=== PATIENT | female | born 1940 | race African-American/Black ===

== ENCOUNTER → 2017-03-03 | Outpatient (CLI) | payer OTHER ==
[2016-05-20 12:18] VITALS: BP 126/83
[~2017-03-03] MED LIST: ALEN70TA5 PO; AMLO5TAB2 PO; AMOX1TAB61 PO; Amoxicillin/Potassium Clav PO; GLIP10TA13 PO; HYDR-971 PO; INSU100I30 SQ; LEVO150T5 PO; LEVO200T5 PO; LINA5TAB4 PO; METF500T4 PO; METO25TA4 PO; Metoprolol Tartrate PO; POTA20TA12 PO; SIMV20TA3 PO; SITA100T PO; TRIA1TAB5 PO
--- NOTE | 2017-03-04 14:13 | KCIC ---
Examination: Ultrasound kidneys HISTORY: History of chronic kidney disease, hypertension, diabetes COMPARISON: None available FINDINGS: The right kidney measures 11.7 x 4.0 x 5.1 cm. The left kidney measures 10.9 x 5.4 x 5.4 cm. There is a cystic structure measuring 2.6 x 2.9 x 2.6 cm identified in the superior pole of the right kidney likely a cyst. In the mid to lower pole left kidney, there is a complex septated cystic structure identified measuring 2.0 x 2.0 x 2.4 cm. Urinary bladder is mildly distended. Bilateral ureteral jets are identified within the urinary bladder. IMPRESSION: 1. 2.4 cm complex appearing cyst or cystic lesion identified in the left kidney. Close interval follow-up examination is recommended. 2. Simple appearing cyst measuring 2.9 cm in the right kidney. Electronically signed by: Santiago Multani MD (03/04/2017 2:10 PM) [id number]
== END | disposition home or self-care (01) ==
LOC: US 12:12
PROVIDERS: ATTEND Internal Medicine Nephrology
DX: N28.1 Cyst of kidney, acquired (principal); I12.9 Hypertensive chronic kidney disease with stage 1 through stage 4 chronic kidney disease, or unspecified chronic kidney disease; E11.22 Type 2 diabetes mellitus with diabetic chronic kidney disease; N18.3 Chronic kidney disease, stage 3 (moderate)
CPT/HCPCS: 76770

== ENCOUNTER 2018-11-09 11:58 | Emergency (ER) | payer OTHER ==
[~2018-11-09] VITALS: Ht 175.3 cm; Wt 104.3 kg
[~2018-11-09 11:58] MED LIST changes: -ALEN70TA5 PO; +ALEN70TA6 PO; +AMLO5TAB10 PO; -AMLO5TAB2 PO; +HYDR-3164 PO; -HYDR-971 PO; +LINA5TAB PO; -LINA5TAB4 PO; +METF500T16 PO; -METF500T4 PO
[2018-11-09] MEDS ORDERED: fentaNYL PF VIAL 100 MCG/2 ML VIAL IV ONE (12:30)
[2018-11-09] MEDS ORDERED: ONDANSETRON PF 4 MG/2 ML VIAL. IV ONE (12:30)
[2018-11-09 12:32] LABS: BILIRUBIN,URINE NEGATIVE (NEG); CLARITY,URINE HAZY; COLOR,URINE YELLOW; NITRITE,URINE NEGATIVE (NEG); PH,URINE 6.5; PROTEIN,URINE NEGATIVE (NEG-TRACE); UROBILINOGEN,URINE 0.2 mg/dL (0.2 mg/dL)
[2018-11-09 12:33] LABS: BACTERIA,URINE MANY /HPF (0-FEW); SQUAMOUS EPITHELIAL CELL,UR MANY /LPF
--- NOTE | 2018-11-09 12:41 | PHYS DOC ---
Past Medical History Past Medical History: Diabetes-Type II, High Cholesterol, Hypertension, Hypothyroid Past Surgical History: Alcohol Use: None Drug Use: None Adult General Chief Complaint Chief Complaint: ABDOMINAL PAIN HPI HPI Patient is a 77 year old female with a history of hypertension, high cholesterol, kidney disease, DM II, who presents to the ED today complaining of mild left upper quadrant/flank pain that began this morning. Patient is also complaining of nausea with no vomiting. Review of Systems Review of Systems Constitutional: Denies fever or chills [] Eyes: Denies change in visual acuity, redness, or eye pain [] HENT: Denies nasal congestion or sore throat [] Respiratory: Denies cough or shortness of breath [] Cardiovascular: No additional information not addressed in HPI [] GI: Reports left upper quadrant abdominal pain. Reports nausea. Denies vomiting , bloody stools or diarrhea [] : Denies dysuria or hematuria [] Musculoskeletal: Denies back pain or joint pain [] Integument: Denies rash or skin lesions [] Neurologic: Denies headache, focal weakness or sensory changes [] All other systems were reviewed and found to be within normal limits, except as documented in this note. Current Medications Current Medications Current Medications Medications (Trade) Dose Ordered Sig/Simi Start Time Stop Time Status Last Admin Dose Admin Fentanyl Citrate (Fentanyl 2ml Vial) 50 mcg 1X ONCE 11/09/18 12:30 11/09/18 12:33 DC 11/09/18 13:14 50 MCG Morphine Sulfate (Morphine Sulfate) 5 mg 1X ONCE 11/09/18 15:00 11/09/18 15:01 DC 11/09/18 15:15 5 MG Ondansetron HCl (Zofran) 4 mg 1X ONCE 11/09/18 12:30 11/09/18 12:33 DC 11/09/18 13:11 4 MG Sodium Chloride 1,000 ml @ 1,000 mls/hr 1X ONCE 11/09/18 14:45 11/09/18 15:44 DC 11/09/18 15:11 1,000 MLS/HR Allergies Allergies Allergies Coded Allergies Type Severity Reaction Last Updated Verified No Known Drug Allergies 05/20/16 No Physical Exam Physical Exam Constitutional: Well developed, well nourished, no acute distress, non-toxic appearance. [] HENT: Normocephalic, atraumatic, bilateral external ears normal, oropharynx moist, no oral exudates, nose normal. [] Eyes: PERRLA, EOMI, conjunctiva normal, no discharge. [] Neck: Normal range of motion, no tenderness, supple, no stridor. [] Cardiovascular:Heart rate regular rhythm, no murmur [] Lungs & Thorax: Bilateral breath sounds clear to auscultation [] Abdomen: Bowel sounds normal, soft, no tenderness, no masses, no pulsatile masses. [] Skin: Warm, dry, no erythema, no rash. [] Back: No tenderness, no CVA tenderness. [] Extremities: No tenderness, no cyanosis, no clubbing, ROM intact, no edema. [] Neurologic: Alert and oriented X 3, normal motor function, normal sensory function, no focal deficits noted. [] Psychologic: Affect normal, judgement normal, mood normal. [] Current Patient Data Vital Signs Vital Signs Date Time Temp Pulse Resp B/P (MAP) Pulse Ox O2 Delivery O2 Flow Rate FiO2 11/09/18 15:15 13 99 Room Air 11/09/18 11:58 97.7 81 125/72 (89) 97.7 Lab Values Laboratory Tests Test 11/09/18 12:13 11/09/18 13:08 Urine Collection Type Void Urine Color Yellow Urine Clarity Hazy Urine pH 6.5 Urine Specific [place] 1.010 Urine Protein Negative mg/dL (NEG-TRACE) Urine Glucose (UA) Negative mg/dL (NEG) Urine Ketones (Stick) Negative mg/dL (NEG) Urine Blood Small (NEG) Urine Nitrite Negative (NEG) Urine Bilirubin Negative (NEG) Urine Urobilinogen Dipstick 0.2 mg/dL (0.2 mg/dL) Urine Leukocyte Esterase Trace (NEG) Urine RBC 1-2 /HPF (0-2) Urine WBC 1-4 /HPF (0-4) Urine Squamous Epithelial Cells Many /LPF Urine Bacteria Many /HPF (0-FEW) Urine Mucus Slight /LPF White Blood Count 5.9 x10^3/uL (4.0-11.0) Red Blood Count 4.29 x10^6/uL (3.50-5.40) Hemoglobin 10.8 g/dL (12.0-15.5) L Hematocrit 34.0 % (36.0-47.0) L Mean Corpuscular Volume 79 fL (79-100) Mean Corpuscular Hemoglobin 25 pg (25-35) Mean Corpuscular Hemoglobin Concent 32 g/dL (31-37) Red Cell Distribution Width 14.6 % (11.5-14.5) H Platelet Count 237 x10^3/uL (140-400) Neutrophils (%) (Auto) 67 % (31-73) Lymphocytes (%) (Auto) 13 % (24-48) L Monocytes (%) (Auto) 10 % (0-9) H Eosinophils (%) (Auto) 10 % (0-3) H Basophils (%) (Auto) 1 % (0-3) Neutrophils # (Auto) 3.9 x10^3uL (1.8-7.7) Lymphocytes # (Auto) 0.8 x10^3/uL (1.0-4.8) L Monocytes # (Auto) 0.6 x10^3/uL (0.0-1.1) Eosinophils # (Auto) 0.6 x10^3/uL (0.0-0.7) Basophils # (Auto) 0.0 x10^3/uL (0.0-0.2) Sodium Level 131 mmol/L (136-145) L Potassium Level 4.3 mmol/L (3.5-5.1) Chloride Level 95 mmol/L (98-107) L Carbon Dioxide Level 31 mmol/L (21-32) Anion Gap 5 (6-14) L Blood Urea Nitrogen 25 mg/dL (7-20) H Creatinine 1.4 mg/dL (0.6-1.0) H Estimated GFR (Cockcroft-Gault) 44.4 BUN/Creatinine Ratio 18 (6-20) Glucose Level 115 mg/dL (70-99) H Calcium Level 8.8 mg/dL (8.5-10.1) Total Bilirubin 0.4 mg/dL (0.2-1.0) Aspartate Amino Transferase (AST) 14 U/L (15-37) L Alanine Aminotransferase (ALT) 16 U/L (14-59) Alkaline Phosphatase 110 U/L (46-116) Total Protein 7.3 g/dL (6.4-8.2) Albumin 3.1 g/dL (3.4-5.0) L Albumin/Globulin Ratio 0.7 (1.0-1.7) L Lipase 82 U/L (73-393) Ethyl Alcohol Level < 10 mg/dL (0-10) Laboratory Tests 11/09/18 13:08 Laboratory Tests 11/09/18 13:08 EKG EKG [] Radiology/Procedures Radiology/Procedures []PROCEDURE: CT ABDOMEN PELVIS WO CONTRAST PQRS Compliance Statement: One or more of the following individualized dose reduction techniques were utilized for this examination: 1. Automated exposure control 2. Adjustment of the mA and/or kV according to patient size 3. Use of iterative reconstruction technique CT ABDOMEN PELVIS WO CONTRAST Clinical Indication: LT FLANK PAIN, HEMATURIA, Comparison: CT abdomen and pelvis with contrast, 10/01/2014. Technique: Helical CT imaging of the abdomen and pelvis is performed without IV or oral contrast. Findings: Evaluation of solid organs and bowel is limited without oral and IV contrast, decreasing sensitivity for detection of pathology. Minimal dependent atelectasis in the lower lobes. Cardiac size upper limits of normal. Cholecystectomy. Liver, spleen, pancreas, and right adrenal gland are normal. Hyperplasia of the left adrenal gland. Mild atherosclerotic calcification of the abdominal aorta, no aneurysm. Small fat-containing umbilical hernia. Small cyst in the upper pole of the right kidney is slightly larger. There is no right hydronephrosis. There is a 1.4 cm partially exophytic lesion lateral lower pole of left kidney, indeterminate based on attenuation. There is a 1.3 cm hyperdense lesion of the medial interpolar left kidney. There is an exophytic soft tissue density mass of the lateral interpolar left kidney measuring approximately 2.9 cm AP by 1.9 cm transverse by 2.4 cm craniocaudal. Finding well seen on axial image 63, coronal image 60. Mild left perinephric and proximal periureteral stranding. No hydronephrosis. No ureteral calculus. Stomach unremarkable. No dilated small bowel. Portions of the colon are not well distended accentuating wall thickness. No convincing colon wall thickening. The appendix is normal. Urinary bladder is normal. Hysterectomy. No pelvic free fluid. DJD of the symphysis pubis. Left osteitis condensans ilii. IMPRESSION: 1. Findings suspicious for a solid mass of the lateral interpolar left kidney. Recommend further evaluation with renal ultrasound. If ultrasound is indeterminant recommend multiphase CT or MR abdomen. 2. There are 2 other smaller indeterminate lesions of the left kidney. Electronically signed by: Jose Del Real MD (11/09/2018 2:21 PM) [id number] DICTATED and SIGNED BY: JOSE DEL REAL MD DATE: 11/09/18 1421 Course & Med Decision Making Course & Med Decision Making Pertinent Labs and Imaging studies reviewed. (See chart for details) This is a 77-year-old male patient presented to the ED today with left upper quadrant abdominal pain/flank pain as well as nausea. Symptoms began today. CBC with a normal WBC, hemoglobin 10.9, hematocrit 34.0, this is around patient's baseline. Sodium 131, creatinine 1.4, BUN 25, patient has history of kidney disease. Her creatinine has improved tremendously from previous values. Urine analysis appears contaminated. CT of the abdomen and pelvic was noted for- Findings suspicious for a solid mass of the lateral interpolar left kidney. Recommend further evaluation with renal ultrasound. If ultrasound is indeterminant recommend multiphase CT or MR abdomen. There are 2 other smaller indeterminate lesions of the left kidney. The agent has been given 1 L of IV fluids. She is also been given pain medicine and nausea medicines her pain is well controlled. Results were given to patient and family. Provided patient a urologist, she states she has a kidney doctor. Instructed her to follow-up as an outpatient and have them do further testing on this lesions/mass on her kidney. Discharged with hydrocodone and Zofran as needed. Dragon Disclaimer Dragon Disclaimer This electronic medical record was generated, in whole or in part, using a voice recognition dictation system. Departure Departure Impression: Primary Impression: Left flank pain Additional Impression: Left kidney mass Disposition: 01 HOME, SELF-CARE Condition: STABLE Referrals: MICHELLE BRYAN APPLICATIONS TESTER (PCP) [place] PROCTOR MD Follow up for the kidney mass Patient Instructions: Flank Pain, [id number] Additional Instructions: You were evaluated in the emergency room your CT is suspicious of a mass in the left kidney. Please follow-up with your kidney doctor or the provided urologist as soon as possible for further workup on this mass. Please take the prescribed pain medicine as needed for pain. Also take the nausea medicine as needed. Scripts Ondansetron (ONDANSETRON ODT) 4 Mg Tab.rapdis 1 TAB PO PRN Q6-8HRS, #16 TAB Prov: BERNIE MULLEN APRN 11/09/18 Hydrocodone/Apap 5-325 (NORCO 5-325 TABLET) 1 Each Tablet 1-2 TAB PO Q4-6HRS, #20 TAB Prov: BERNIE MULLEN APRN 11/09/18 Problem Qualifiers BERNIE MULLEN APRN Nov 09, 2018 12:41
[2018-11-09 13:29] LABS: BASO % 1 % (0-3); EOS # 0.6 x10^3/uL (0.0-0.7); EOS % 10 % (0-3); HEMOGLOBIN 10.8 g/dL (12.0-15.5); LYMPH # 0.8 x10^3/uL (1.0-4.8); LYMPH % 13 % (24-48); MEAN CORPUSCULAR HEMOGLOBIN 25 pg (25-35); MEAN CORPUSCULAR HGB CONC 32 g/dL (31-37); MEAN CORPUSCULAR VOLUME 79 fL (79-100); MONO # 0.6 x10^3/uL (0.0-1.1); MONO % 10 % (0-9); NEUT # 3.9 x10^3uL (1.8-7.7); NEUT % 67 % (31-73); PLATELET COUNT 237 x10^3/uL (140-400); RED BLOOD COUNT 4.29 x10^6/uL (3.50-5.40); RED CELL DISTRIBUTION WIDTH 14.6 % (11.5-14.5); WHITE BLOOD COUNT 5.9 x10^3/uL (4.0-11.0)
[2018-11-09 13:35] LABS: CALCIUM 8.8 mg/dL (8.5-10.1); CREATININE 1.4 mg/dL (0.6-1.0); GFR 44.4; POTASSIUM 4.3 mmol/L (3.5-5.1)
[2018-11-09 13:41] LABS: ALBUMIN 3.1 g/dL (3.4-5.0); ALBUMIN/GLOBULIN RATIO 0.7 (1.0-1.7); TOTAL BILIRUBIN 0.4 mg/dL (0.2-1.0); TOTAL PROTEIN 7.3 g/dL (6.4-8.2)
--- NOTE | 2018-11-09 14:24 | RAD ---
PQRS Compliance Statement: One or more of the following individualized dose reduction techniques were utilized for this examination: 1. Automated exposure control 2. Adjustment of the mA and/or kV according to patient size 3. Use of iterative reconstruction technique CT ABDOMEN PELVIS WO CONTRAST Clinical Indication: LT FLANK PAIN, HEMATURIA, Comparison: CT abdomen and pelvis with contrast, 10/01/2014. Technique: Helical CT imaging of the abdomen and pelvis is performed without IV or oral contrast. Findings: Evaluation of solid organs and bowel is limited without oral and IV contrast, decreasing sensitivity for detection of pathology. Minimal dependent atelectasis in the lower lobes. Cardiac size upper limits of normal. Cholecystectomy. Liver, spleen, pancreas, and right adrenal gland are normal. Hyperplasia of the left adrenal gland. Mild atherosclerotic calcification of the abdominal aorta, no aneurysm. Small fat-containing umbilical hernia. Small cyst in the upper pole of the right kidney is slightly larger. There is no right hydronephrosis. There is a 1.4 cm partially exophytic lesion lateral lower pole of left kidney, indeterminate based on attenuation. There is a 1.3 cm hyperdense lesion of the medial interpolar left kidney. There is an exophytic soft tissue density mass of the lateral interpolar left kidney measuring approximately 2.9 cm AP by 1.9 cm transverse by 2.4 cm craniocaudal. Finding well seen on axial image 63, coronal image 60. Mild left perinephric and proximal periureteral stranding. No hydronephrosis. No ureteral calculus. Stomach unremarkable. No dilated small bowel. Portions of the colon are not well distended accentuating wall thickness. No convincing colon wall thickening. The appendix is normal. Urinary bladder is normal. Hysterectomy. No pelvic free fluid. DJD of the symphysis pubis. Left osteitis condensans ilii. IMPRESSION: 1. Findings suspicious for a solid mass of the lateral interpolar left kidney. Recommend further evaluation with renal ultrasound. If ultrasound is indeterminant recommend multiphase CT or MR abdomen. 2. There are 2 other smaller indeterminate lesions of the left kidney. Electronically signed by: Jose Del Real MD (11/09/2018 2:21 PM) [id number]
[2018-11-09] MEDS ORDERED: IV NORMAL SALINE 1000ML BAG 1,000 ML IV ONE (14:45)
[2018-11-09] MEDS ORDERED: MORPHINE SULFATE 10 MG/ML VIAL. IV ONE (15:00)
[2018-11-09] MEDS ORDERED: ONDA4TAB12 PO (15:57)
[2018-11-09] MEDS ORDERED: HYDR-3164 PO (15:57)
[2018-11-09 16:04] VITALS: BP 144/70
== END 2018-11-09 16:41 | disposition home or self-care (01) ==
LOC: ER 11:58
DX: R10.12 Left upper quadrant pain (principal); N28.89 Other specified disorders of kidney and ureter; E78.00 Pure hypercholesterolemia, unspecified; I10 Essential (primary) hypertension; E11.9 Type 2 diabetes mellitus without complications; E03.9 Hypothyroidism, unspecified
CPT/HCPCS: 36415; 74176; 80053; 81001; 83690; 85025; 96374; 96375; 99284; G0480; J2270; J2405; J3010; J7030

== ENCOUNTER → 2021-02-04 | Outpatient (CLI) | payer MEDICARE ==
[~2021-02-04] MED LIST changes: -ALEN70TA6 PO; +ALEN70TA71 PO; +AMLO-186 PO; -AMLO5TAB10 PO; +ASPI-630 PO; +CARV6.2511 PO; +DIPH25CA58 PO; +FERR325T14 PO; +GLIP5TAB10 PO; +HYDR-2759 PO; +INSU100V11 IJ; +OMEP20CA16 PO; +ONDA4TAB12 PO; +SIMV20TA18 PO; -SIMV20TA3 PO
[2021-02-04 14:32] LABS: BASO % 1 % (0-3); EOS # 0.3 x10^3/uL (0.0-0.7); EOS % 6 % (0-3); HEMATOCRIT 33.1 % (36.0-47.0); HEMOGLOBIN 10.8 g/dL (12.0-15.5); LYMPH # 1.3 x10^3/uL (1.0-4.8); LYMPH % 24 % (24-48); MEAN CORPUSCULAR HEMOGLOBIN 26 pg (25-35); MEAN CORPUSCULAR HGB CONC 33 g/dL (31-37); MEAN CORPUSCULAR VOLUME 80 fL (79-100); MONO # 0.5 x10^3/uL (0.0-1.1); MONO % 9 % (0-9); NEUT # 3.2 x10^3/uL (1.8-7.7); NEUT % 60 % (31-73); PLATELET COUNT 232 x10^3/uL (140-400); RED BLOOD COUNT 4.15 x10^6/uL (3.50-5.40); WHITE BLOOD COUNT 5.3 x10^3/uL (4.0-11.0)
[2021-02-04 14:49] LABS: ALBUMIN 3.4 g/dL (3.4-5.0); ALBUMIN/GLOBULIN RATIO 0.9 (1.0-1.7); CALCIUM 8.9 mg/dL (8.5-10.1); CREATININE 2.1 mg/dL (0.6-1.0); GFR 27.6; POTASSIUM 4.1 mmol/L (3.5-5.1); TOTAL BILIRUBIN 0.3 mg/dL (0.2-1.0); TOTAL PROTEIN 7.1 g/dL (6.4-8.2)
== END ==
LOC: LAB 13:40
PROVIDERS: ATTEND Podiatrist
DX: Z01.812 Encounter for preprocedural laboratory examination (principal); Z20.822 Contact with and (suspected) exposure to COVID-19
CPT/HCPCS: 36415; 80053; 85025; U0003; U0005

== ENCOUNTER 2021-02-06 10:44 | Day surgery (SDC) | payer MEDICARE ==
[~2021-02-06] VITALS: Ht 175.3 cm; Wt 104.3 kg
[~2021-02-06 10:44] MED LIST changes: +BUPIVACAINE MPF 0.5% 30 ML VIAL. ONE; +DEXAMETHASONE SOD PHOS 4 MG/ML VIAL ONE; -HYDR-2759 PO; +LIDOCAINE 1% PF 30 ML VIAL. ONE; +POVIDONE-IODINE 10% TOPICAL OINTMENT 28GM TUBE. TP ONE
[2021-02-06 11:08] VITALS: BP 147/66
[2021-02-06] MEDS ORDERED: INSULIN LISPRO 100 UNIT/ML 3ML VIAL for OP,RR ONLY. SQ ONE (11:25)
[2021-02-06] MEDS ORDERED: INSULIN LISPRO 100 UNIT/ML 3ML VIAL for OP,RR ONLY. SQ PRN (11:30)
[2021-02-06] MEDS ORDERED: IV RINGERS,LACTATED 1000ML 1,000 ML IV SCH (11:30)
--- NOTE | 2021-02-06 12:23 | PDOC1 ---
History and Physical Date of Admission Date of Admission DATE: 02/06/21 TIME: 12:20 Identification/Chief Complaint Chief Complaint Left 2nd toe pain Source Source: Chart review, Patient History of Present Illness History of Present Illness Ms Iraheta is a 80yo F w/ PMHx DM2, HTN, hypothyroidism, CKDIIB, obesity who presents to outpatient surgery for left 2nd toe pain from hammertoe. She has had pain in her left second toe for several years and attempted self debridement does see podiatry for diabetic foot care painful nails and painful calluses. She has had significant pain and ulcer from shoe for the last several months and elected to have definitive treatment. She had an excellent outcome in 2016 for hammertoe on her right second toe. No previous problems with anesthesia no cardiac history no prior blood transfusions. Preoperative EKG reviewed leftward axis sinus no ST T abnormalities. Preoperative COVID-19 NAAT negative. WBC 5.3, Hb 10.8, platelets 232, NA 139, K4.1, BUN 31, CR 2.1, glucose 122 She is comfortable in no apparent distress. No current pain. No recent travel or sick contacts. Past Medical History Cardiovascular: HTN, Hyperlipidemia Renal/: Chronic renal failure Endocrine: Diabetes, Hyperthyroidism Past Surgical History Past Surgical History: Cholecystectomy, Other (Right 2nd hammertoe 2016) Family History Family History: Hypertension, Other Social History Smoke: No ALCOHOL: none Drugs: None Current Medications Current Medications Current Medications Cefazolin Sodium/ Dextrose 50 ml @ 100 mls/hr 1X PREOP PRN IV PRIOR TO PROCEDURE; Start 02/06/21 at 06:00; Stop 02/06/21 at 18:00 Lidocaine HCl (Xylocaine 1% Pf 30ml Vial) 30 ml STK-MED ONCE .ROUTE ; Start 02/06/21 at 10:35; Stop 02/06/21 at 10:35; Status DC Dexamethasone Sodium Phosphate (Decadron) 4 mg STK-MED ONCE .ROUTE ; Start 02/06/21 at 10:35; Stop 02/06/21 at 10:35; Status DC Bupivacaine HCl (Sensorcaine Mpf 0.5%) 30 ml STK-MED ONCE .ROUTE ; Start 02/06/21 at 10:35; Stop 02/06/21 at 10:35; Status DC Bupivacaine HCl (Sensorcaine Mpf 0.5%) 30 ml STK-MED ONCE .ROUTE ; Start 02/06/21 at 10:35; Stop 02/06/21 at 10:36; Status DC Povidone Iodine (Betadine Oint) 28 radha STK-MED ONCE TP ; Start 02/06/21 at 10:36; Stop 02/06/21 at 10:36; Status DC Insulin Human Lispro (HumaLOG VIAL for OP,RR ONLY) 0-10 units PRN Q1HR PRN SQ PER PROTOCOL Last administered on 02/06/21at 11:22; Start 02/06/21 at 11:30; Stop 02/07/21 at 11:29 Ringer's Solution 1,000 ml @ 75 mls/hr [id number] IV Last administered on 02/06/21at 11:22; Start 02/06/21 at 11:30 Active Scripts Active Metoprolol Tartrate 25 Mg Tablet 25 Mg PO BID Reported Aspirin 81 Mg Tab.chew 81 Mg PO DAILY Benadryl (Diphenhydramine Hcl) 25 Mg Capsule 25 Mg PO DAILY Ferrous Sulfate 325 Mg Tablet 325 Mg PO 2X/WEEK Carvedilol (Carvedilol) 6.25 Mg Tablet 0.5 Tab PO BIDWMEALS Omeprazole 20 Mg Capsule.dr 20 Mg PO DAILY Novolin R (Insulin Regular, Human) 100 Unit/1 Ml Vial 20 Unit IJ BIDWMEALS Glipizide 5 Mg Tablet 5 Mg PO BID Levothyroxine Sodium 150 Mcg Tablet 1 Tab PO DAILY Amlodipine Besylate 5 Mg Tablet 1 Tab PO DAILY Triamterene-Hctz 75-50 Mg Tab (Triamterene/Hydrochlorothiazid) 1 Each Tablet 1 Tab PO DAILY Simvastatin 20 Mg Tablet 1 Tab PO QHS Potassium Chloride 20 Meq Tab.er.prt 1 Tab PO DAILY Allergies Allergies: Coded Allergies: No Known Drug Allergies (Unverified , 05/20/16) ROS General: No: Chills, Night Sweats, Fatigue, Malaise, Appetite, Other PSYCHOLOGICAL ROS: No: Anxiety, Behavioral Disorder, Concentration difficultie, Decreased libido, Depression, Disorientation, Hallucinations, Hostility, Irritablity, Memory difficulties, Mood Swings, Obsessive thoughts, Physical abuse, Sexual abuse, Sleep disturbances, Suicidal ideation, Other Eyes: No Blurry vision, No Decreased vision, No Double vision, No Dry eyes, No Excessive tearing, No Eye Pain, No Itchy Eyes, No Loss of vision, No Photopho morena, No Scotomata, No Uses contacts, No Uses glasses, No Other HEENT: No: Heacaches, Visual Changes, Hearing change, Nasal congestion, Nasal discharge, Oral lesions, Sinus pain, Sore Throat, Epistaxis, Sneezing, Snoring, Tinnitus, Vertigo, Vocal changes, Other ALLERGY AND IMMUNOLOGY: No: Hives, Insect Bite Sensitivity, Itchy/Watery Eyes, Nasal Congestion, Post Nasal Drip, Seasonal Allergies, Other Hematological and Lymphatic: No: Bleeding Problems, Blood Clots, Blood Transfusions, Brusing, Night Sweats, Pallor, Swollen Lymph Nodes, Other ENDOCRINE: No: Breast Changes, Galactorrhea, Hair Pattern Changes, Hot Flashes, Malaise/lethargy, Mood Swings, Palpitations, Polydipsia/polyuria, Skin Changes, Temperature Intolerance, Unexpected Weight Changes, Other Breast: No New/Changing Breast Lumps, No Nipple changes, No Nipple discharge, No Other Respiratory: No: Cough, Hemoptysis, Orthopnea, Pleuritic Pain, Shortness of breath, SOB with excertion, Sputum Changes, Stridor, Tachypnea, Wheezing, Other Cardiovascular: No Chest Pain, No Palpitations, No Orthopnea, No Paroxysmal Noc. Dyspnea, No Edema, No Lt Headedness, No Other Gastrointestinal: No Nausea, No Vomiting, No Abdominal Pain, No Diarrhea, No Constipation, No Melena, No Hematochezia, No Other Genitourinary: No Dysuria, No Frequency, No Incontinence, No Hematuria, No Ret ention, No Discharge, No Urgency, No Pain, No Flank Pain, No Other, No , No , No , No , No , No , No Musculoskeletal: Yes Gait Disturbance, Yes Joint Pain; No Joint Stiffness, No Joint Swelling, No Muscle Pain, No Muscular Weakness, No Pain In:, No Swelling In:, No Other Skin: No Dry Skin, No Eczema, No Hair Changes, No Lumps, No Mole Changes, No Mottling, No Nail Changes, No Pruritus, No Rash, No Skin Lesion Changes, No Other, No Acne Physical Exam General: Alert, Oriented X3, Cooperative, No acute distress HEENT: Atraumatic, PERRLA, EOMI, Mucous membr. moist/pink Lungs: Clear to auscultation, Normal air movement Heart: S1S2, RRR, no thrills, no rubs, no gallops, no murmurs Abdomen: Normal bowel sounds, Soft, No tenderness, No hepatosplenomegaly, No masses Rectal Exam: not examined Extremities: No clubbing, No cyanosis, No edema, Normal pulses, No tenderness/swelling Skin: No rashes, No breakdown, No significant lesion Neuro: Normal gait, Normal speech, Strength at 5/5 X4 ext, Normal tone, Sensation intact, Cranial nerves 3-12 NL, Reflexes 2+ Psych/Mental Status: Mental status NL, Mood NL Vitals Vitals Vital Signs Date Time Temp Pulse Resp B/P (MAP) Pulse Ox O2 Delivery O2 Flow Rate FiO2 02/06/21 11:12 97.6 81 18 147/66 96 Room Air 97.6 Labs Labs Laboratory Tests Test 02/06/21 11:15 Glucose (Fingerstick) 122 mg/dL (70-99) Laboratory Tests Test 02/06/21 11:15 Glucose (Fingerstick) 122 mg/dL (70-99) VTE Prophylaxis Ordered VTE Prophylaxis Devices: No VTE Pharmacological Prophylaxi: No Assessment/Plan Assessment/Plan A/P: Left 2nd hammertoe - no further testing prior to planned surgery. Moderate pre- operative cardiac risk for a low risk surgery DM2 - unknown A1c, though home glucose 120-140. On Glucophage Tradjenta, glipizide, Tresiba, simvastatin HTN - No tiffany or ARB due to CKD hypothyroidism - controlled on 150mcg levothyroxine CKDIIB - stable has q6mo nephrology f/u Obesity - counseled on lifestyle modification. Recommended to consider SGLT-2 or GLP1 agonist therapy for DM2 treatment FEN - NPO PPX - ambulatory CODE - FULL Dispo -no further testing prior to planned outpatient surgery likely will be able to discharge later today postoperatively per anesthesia. Justifications for Admission Other Justification SHILPI MARQUES MD Feb 06, 2021 12:23
[2021-02-06] MEDS ORDERED: SEVOFLURANE 61 TO 120 MINUTES. IH ONE (12:56)
[2021-02-06] MEDS ORDERED: LIDOCAINE 2% PF 5 ML VIAL. ONE (12:56)
[2021-02-06] MEDS ORDERED: ONDANSETRON PF 4 MG/2 ML VIAL. ONE (12:56)
[2021-02-06] MEDS ORDERED: PHENYLEPHRINE in 0.9% NACL PF 1 MG/10 ML SYRINGE. IV ONE (12:56)
[2021-02-06] MEDS ORDERED: PROPOFOL 10 MG/ML (20ML) VIAL. IV ONE (12:56)
[2021-02-06] MEDS ORDERED: HYDR-2759 PO (13:49)
[2021-02-06 13:56] VITALS: BP 187/99
[2021-02-06] MEDS ORDERED: HYDROcodone/APAP 5/325MG 1 TAB TABLET PO ONE (14:30)
--- NOTE | 2021-02-07 21:04 | OP ---
DATE OF SURGERY: 02/06/2021 PREOPERATIVE HISTORY: The patient was seen a couple of months ago on 11/29. The patient desires to have her hammertoe corrected on her left foot. Her right toe was done a number of years ago, was very happy with that. X-rays were taken and evaluated. The patient desires to have this corrected today. The patient was seen in the preoperative area. We reviewed the procedure, which she was familiar with. She signed consent form and desires to proceed with procedure. PREOPERATIVE DIAGNOSIS: Hammertoe deformity, second toe, left foot. POSTOPERATIVE DIAGNOSIS: Hammertoe deformity, second toe, left foot. PROCEDURE: Hammertoe correction arthroplasty, second toe, left foot. ANESTHESIA: General anesthetic with ankle block. DESCRIPTION OF PROCEDURE: The patient was brought to the operating room, laid in supine position, induced with a general anesthetic and ankle block was performed. The foot is scrubbed with Betadine and the foot is draped. A tourniquet was placed at the ankle, inflated to 250 mmHg. After the foot was exsanguinated with Jose's tourniquet, two semielliptical incisions were made over the proximal interphalangeal joint. The skin wedge was resected. The joint line was identified and entered. The head of the proximal phalanx was exposed and using the oscillating saw, the distal proximal phalanx is resected. Area was inspected. Using a 0.045 K-wire, it was placed from proximal to distal through the tip of the toe and retrograded back into the proximal phalanx. C-arm was utilized to determine adequate location after this has been identified and achieved. The capsule was then closed with the extensor tendon using 4-0 Vicryl then the skin was closed with 4-0 nylon. Then, the foot is dressed with a Xeroform dressing and sterile gauze. Tourniquet was deflated. Capillary filling time returned to the digit. The patient left the operating room in satisfactory stable condition. QUETA/TOM/ALEC DR: Aiyana TID: [id number]
== END 2021-02-06 14:37 | disposition home or self-care (01) ==
LOC: SURG 10:44
PROVIDERS: ATTEND Podiatrist
DX: M20.42 Other hammer toe(s) (acquired), left foot (principal); I10 Essential (primary) hypertension; E78.00 Pure hypercholesterolemia, unspecified; E11.9 Type 2 diabetes mellitus without complications; E03.9 Hypothyroidism, unspecified; E66.9 Obesity, unspecified; G47.30 Sleep apnea, unspecified; K21.9 Gastro-esophageal reflux disease without esophagitis; M19.90 Unspecified osteoarthritis, unspecified site; Z90.49 Acquired absence of other specified parts of digestive tract; Z90.710 Acquired absence of both cervix and uterus; Z98.890 Other specified postprocedural states; Z79.899 Other long term (current) drug therapy; Z79.82 Long term (current) use of aspirin; Z88.8 Allergy status to other drugs, medicaments and biological substances
CPT/HCPCS: 28285; 64450; 82962; A4930; A6402; J0690; J1100; J1815; J2370; J2405; J2704; J3490; A4657; A6452